=== PATIENT | male | born 1950 | race Hispanic/Latino ===

== ENCOUNTER 2022-03-16 11:23 | Emergency (ER) | payer OTHER ==
[2022-03-16 11:52] LABS: BASOPHILS % (AUTO) 0.7 % (0.0-5.0); EOSINOPHILS % (AUTO) 4.1 % (0.0-8.0); HEMATOCRIT 40.7 % (42-54); MEAN CORPUSCULAR HEMOGLOBIN 30.1 pg (27.0-33.0); MEAN CORPUSCULAR HGB CONC 33.4 g/dL (32.0-36.0); MONOCYTES % (AUTO) 9.8 % (3.0-13.0); NEUTROPHILS % (AUTO) 47.2 % (40.0-77.0); PLATELET COUNT (AUTO) 216 K/uL (130-400); RED BLOOD CELL COUNT(AUTO) 4.52 MIL/uL (4.50-6.20); WHITE BLOOD COUNT (AUTO) 5.9 K/uL (4.8-10.8)
[2022-03-16 11:58] LABS: APPEARANCE,URINE Clear (CLEAR); BILIRUBIN,URINE Negative (NEGATIVE); COLOR,URINE Dark Yellow (YELLOW); GLUCOSE, URINE (UA) Negative (NEGATIVE); KETONES,URINE Trace mg/dL (NEGATIVE); LEUKOCYTE ESTERASE ,URINE Trace (NEGATIVE); NITRATE,URINE Negative (NEGATIVE); OCCULT BLOOD,URINE Trace (NEGATIVE); PROTEIN,URINE POS 1+ mg/dL (NEGATIVE)
[2022-03-16] MEDS ORDERED: IPRATROPIUM/ALBUTEROL SULFATE 3 ML SOLUTION IH ONE (12:00)
[2022-03-16] MEDS ORDERED: AZITHROMYCIN 250 MG TABLET PO ONE (12:00)
[2022-03-16] MEDS ORDERED: DEXAMETHASONE 4 MG TAB PO SCH (12:00)
[2022-03-16] MEDS ORDERED: AMOX/CLAV 875/125MG TAB PO ONE (12:00)
[2022-03-16] MEDS ORDERED: GUAIFENESIN-CODEINE 5 ML SYRUP PO ONE (12:00)
[2022-03-16 12:06] LABS: BACTERIA,URINE Rare /HPF (None Seen); SQUAMOUS EPITHELIAL CELL,UR Rare /HPF (0-2); WBC,URINE 0-1 /HPF (0-1)
[2022-03-16 12:16] LABS: POTASSIUM 3.2 mmol/L (3.5-5.1)
[2022-03-16 12:20] LABS: ALBUMIN 2.8 g/dL (3.5-5.0); BILIRUBIN,TOTAL 0.6 mg/dL (0.2-1.0); TOTAL PROTEIN, SERUM 6.8 g/dL (6.0-8.3)
[2022-03-16 12:25] LABS: B-TYPE NATRIURETIC PEPTIDE 225 pg/mL (0-100)
[2022-03-16] MEDS ORDERED: POTASSIUM BICARB/CIT AC 25 MEQ TABLET.EFF PO ONE (13:00)
[2022-03-16] MEDS ORDERED: AMOX1TAB16 PO (13:27)
[2022-03-16] MEDS ORDERED: BENZ-39 PO (13:27)
[2022-03-16] MEDS ORDERED: ALBU8.5H8 IH (13:27)
[2022-03-16] MEDS ORDERED: CEFTRIAXONE 1G VIAL IVP ONE (13:30)
[2022-03-16 13:32] VITALS: BP 160/71
== END 2022-03-16 14:11 | disposition home or self-care (01) ==
LOC: EDH 11:23
DX: J18.9 Pneumonia, unspecified organism (principal); R53.1 Weakness; R63.0 Anorexia; Z20.822 Contact with and (suspected) exposure to COVID-19
CPT/HCPCS: 36415; 71045; 80053; 81001; 83880; 84484; 85025; 87635; 87804 ×2; 93005; 94640; 96374; 99285; C9803; J0696; J8540